=== PATIENT | male | born 1965 | race Caucasian/White ===

== ENCOUNTER 2022-03-14 09:31 | Emergency (ER) | payer OTHER, BC ==
[~2022-03-14] VITALS: Ht 185.4 cm; Wt 100.0 kg
[~2022-03-14 09:31] MED LIST: ACYCLOVIR800 MG PO; B121000 MCG PO; CLINDAMYCIN300 M1 PO; FLEXERIL PO; FLONASE SPRAY50 MC1; KEFLEX500 M1 PO; MULTI VIT PO; NAPROXEN500 MG PO
[2022-03-14 09:40] VITALS: BP 132/87
[2022-03-14] MEDS ORDERED: NAPROXEN500 MG PO (09:57)
[2022-03-14] MEDS ORDERED: FLEXERIL5 M1 PO (09:57)
[2022-03-14 10:01] VITALS: BP 137/91
[2022-03-14 10:19] VITALS: BP 137/91
== END 2022-03-14 10:19 | disposition home or self-care (01) | DRG 563 ==
LOC: ED 09:31
DX: S39.012A Strain of muscle, fascia and tendon of lower back, initial encounter (principal); V43.52XA Car driver injured in collision with other type car in traffic accident, initial encounter; S16.1XXA Strain of muscle, fascia and tendon at neck level, initial encounter